=== PATIENT | female | born 1975 | race Caucasian/White ===

== ENCOUNTER 2016-09-07 19:59 | Emergency (ER) | payer OTHER ==
[~2016-09-07] VITALS: Ht 162.6 cm; Wt 64.7 kg
[~2016-09-07 19:59] MED LIST: MOTRIN800 MG PO; TRAMADOL HCL50 MG PO; TYLENOL REGULA325 MG PO; ULTRAM50 MG PO
[2016-09-07] MEDS ORDERED: MEDROL DOSEPAK4 MG PO (22:40)
[2016-09-07] MEDS ORDERED: PROAIR HFA8.5 GM IH (22:40)
[2016-09-07 22:52] VITALS: BP 118/74
== END 2016-09-07 22:53 | disposition home or self-care (01) ==
LOC: EME 19:59
DX: J06.9 Acute upper respiratory infection, unspecified (principal); H65.92 Unspecified nonsuppurative otitis media, left ear; F17.200 Nicotine dependence, unspecified, uncomplicated; Z88.1 Allergy status to other antibiotic agents; Z88.8 Allergy status to other drugs, medicaments and biological substances; Z88.6 Allergy status to analgesic agent; Z88.5 Allergy status to narcotic agent
CPT/HCPCS: 99281; 99283; J7512

== ENCOUNTER 2017-03-02 11:40 | Emergency (ER) | payer OTHER ==
[~2017-03-02] VITALS: Ht 162.6 cm; Wt 57.7 kg
[~2017-03-02 11:40] MED LIST changes: +MEDROL DOSEPAK4 MG PO; +PROAIR HFA8.5 GM IH
[2017-03-02] MEDS ORDERED: MOTRIN800 MG PO (13:34)
[2017-03-02 13:48] VITALS: BP 118/78
== END 2017-03-02 13:54 | disposition home or self-care (01) ==
LOC: EXP 11:40 → EME 11:40 → EXP 13:54
PROC: 3E0234Z Introduction of Serum, Toxoid and Vaccine into Muscle, Percutaneous Approach (ICD-10-PCS; principal; 2017-03-02)
DX: S93.401A Sprain of unspecified ligament of right ankle, initial encounter (principal); X50.1XXA Overexertion from prolonged static or awkward postures, initial encounter; S40.022A Contusion of left upper arm, initial encounter; S80.212A Abrasion, left knee, initial encounter; W01.0XXA Fall on same level from slipping, tripping and stumbling without subsequent striking against object, initial encounter; Y93.01 Activity, walking, marching and hiking; Z23 Encounter for immunization; F17.200 Nicotine dependence, unspecified, uncomplicated
CPT/HCPCS: 73080; 73110; 73610; 99281; 99284

== ENCOUNTER 2017-05-24 19:49 | Emergency (ER) | payer OTHER ==
[~2017-05-24] VITALS: Ht 157.5 cm; Wt 62.3 kg
[2017-05-24 23:26] LABS: HEMATOCRIT 42.1 % (36.0-46.0); MCH 30.8 PG (29.0-34.0); MCHC 34.2 G/DL (30.0-36.0); MCV 90.1 FL (83-99); RBC DIS.WIDTH-CV 12.4 % (11.8-14.6); RBC DIS.WIDTH-SD 40.9 % (39-53); RED BLOOD COUNT 4.67 M/uL (3.80-5.20); WHITE BLOOD COUNT 11.7 K/uL (4.1-10.2)
[2017-05-24 23:46] LABS: CHLORIDE 102 mEq/L (99-109); POTASSIUM 3.6 mEq/L (3.7-5.4); SODIUM 141 mEq/L (136-147)
[2017-05-24 23:47] LABS: GLUCOSE 85 mg/dL (70-99)
[2017-05-24 23:49] LABS: ANION GAP 11 MEQ/L (2-14)
[2017-05-24 23:51] LABS: GFR ESTIMATE (CALCULATED) > 59 mL/min/
[2017-05-24 23:52] LABS: UREA NITROGEN (BUN) 9 mg/dL (9-23)
[2017-05-24 23:59] LABS: QUANTITATIVE HCG < 4.0 MIU/ML
[2017-05-25 00:10] LABS: MEAN PLAT.VOLUME 11.7 uM^3 (9.5-12.4); PLAT.SUFFICIENCY ADEQUATE; PLATELET COUNT 185 K/uL (156-360)
[2017-05-25] MEDS ORDERED: NAPROSYN500 MG PO (00:17)
[2017-05-25 00:44] VITALS: BP 118/75
== END 2017-05-25 00:58 | disposition home or self-care (01) ==
LOC: EME 19:49
PROVIDERS: Emergency Medicine
DX: D17.1 Benign lipomatous neoplasm of skin and subcutaneous tissue of trunk (principal); M54.5 Low back pain; F17.200 Nicotine dependence, unspecified, uncomplicated
CPT/HCPCS: 74176; 80048; 81003; 84702; 85027; 99281; 99284; J1885; J7030